=== PATIENT | female | born 1935 | race Caucasian/White ===

== ENCOUNTER → 2016-06-03 | Outpatient (CLI) | payer MEDICARE, OTHER, MEDICAID ==
[~2016-06-03] MED LIST: ACET325T38 PO; ALEN70TA2 PO; ASCO500T6 PO; ATN50T PO; ATOR10TA PO; BISA10SU20 RC; BISA5TAB8 PO; BISM262O PO; CALC-671 PO; CALC-770 PO; DEXT1DRO8 OU; DIPH25CA79 PO; DNPZ10T PO; DOCU-34 PO; DPAS20025 PO; ESCI5TAB PO; FAMO20TA13 PO; FLUT16SP NSEACH; GBPN100C PO; HCT25T PO; LIDO76.5 TP; MAG360OR57 PO; MAGN400T26 PO; MAGN800O PO; OXYB10TA PO; PHEN100C4 PO; TRAZ150T72 PO; TRM50T PO; TROL177. TP; VIT1TABL26 PO; ZLP5T PO
[2016-06-03 13:27] LABS: MEAN CORPUSCULAR HEMOGLOBIN 30.5 PG (26.0-34.0); MEAN CORPUSCULAR HGB CONC 34.2 g/dL (31.0-37.0); MEAN CORPUSCULAR VOLUME 89 FL (80-100); MEAN PLATELET VOLUME 11.2 FL (6.0-9.5); PLATELET COUNT 292 10^3uL (150-450); WHITE BLOOD COUNT 13.74 10^3uL (4.0-11.0)
[2016-06-03 13:33] LABS: ALBUMIN 4.6 g/dL (3.4-5.0); ANION GAP 17.1 MEQ/L (3-15); CALCULATED IONIZED CALCIUM 4.8 mg/dL (3.8-4.6); TOTAL PROTEIN 7.2 g/dL (6.4-8.5)
[2016-06-03 13:37] LABS: BAND NEUTROPHILS % 2 % (0-6); EOSINOPHILS % 0 % (0-4); LYMPHOCYTES # 1.1 #; MONOCYTES # 0.3 #; MONOCYTES % 2 % (3-11); RBC MORPH NORMAL (NORMAL); SEGMENTED NEUTROPHILS % 88 % (51-67); TOTAL CELLS COUNTED 100
== END ==
LOC: LAB 12:39
PROVIDERS: ATTEND Surgery
DX: Z01.818 Encounter for other preprocedural examination (principal); K43.0 Incisional hernia with obstruction, without gangrene; I63.9 Cerebral infarction, unspecified
CPT/HCPCS: 36415; 80053; 85007; 85027; 85610; 93005

== ENCOUNTER 2016-06-04 10:07 | Inpatient (IN) | payer MEDICARE, OTHER, MEDICAID ==
[2016-06-04] VITALS (13 sets, daily range): BP systolic 110–143; BP diastolic 56–81
[~2016-06-04] VITALS: Ht 154.9 cm; Wt 62.1 kg
[~2016-06-04 10:07] MED LIST changes: +ACETAMINOPHEN 500 MG TAB (TYLENOL) PO SCH; -SODIUM CHLORIDE FLUSH 10 ML ONE; +SODIUM CHLORIDE FLUSH 3 ML SYR IV SCH; +ceFAZolin 2,000 MG in SODIUM CHLORIDE VIAL (PF) 20 ML IV SCH; +oxyCODONE IMMEDIATE RELEASE 5 MG (OXYIR) TAB PO SCH
--- NOTE | 2016-06-04 10:15 | NUR ---
ORDERS FOR OXYCODONE AND TYLENOL PREOP CANCELLED PER IRAM DOWNING/DR. JERSEY BOYER. PT WILL BE ADMITTED TO FLOOR AND GETTING IV PAIN MEDICATION INSTEAD.
--- NOTE | 2016-06-04 10:25 | NUR ---
Pt admitted to room 313 via w/c from [facility] accompanied by [facility] staff. Transferred 2 hand held assist from w/c to weight chair then to bed. Shuffled gait. Desiree Delong RN from [facility] in room to admit patient.
[2016-06-04] MEDS ORDERED: ONDANSETRON 2 MG/ML (Z0FRAN) 2 ML VIAL IV ONE (10:45)
[2016-06-04] MEDS ORDERED: NALBUPHINE 10 MG/ML (NUBAIN) 1 ML AMP IV ONE (10:45)
--- NOTE | 2016-06-04 11:02 | NUR ---
On admit patient is alert and oriented to place and name but not to time. iv started on first attempt. family is at bedside.
[2016-06-04] MEDS: LACTATED RINGERS 1,000 ML IV SCH ×3 (11:19→19:02)
[2016-06-04] MEDS ORDERED: MAGN800O PO (11:57)
[2016-06-04] MEDS ORDERED: ALEN70TA2 PO (11:57)
[2016-06-04] MEDS ORDERED: LIDO76.5 TP (11:57)
[2016-06-04] MEDS ORDERED: OXYB10TA PO (11:57)
[2016-06-04] MEDS ORDERED: ATOR10TA PO (11:57)
[2016-06-04] MEDS ORDERED: TRAZ150T72 PO (11:57)
[2016-06-04] MEDS ORDERED: DIPH25CA79 PO (11:57)
[2016-06-04] MEDS ORDERED: ZLP5T PO (11:57)
[2016-06-04] MEDS ORDERED: HCT25T PO (11:57)
[2016-06-04] MEDS ORDERED: DOCU-34 PO (11:57)
[2016-06-04] MEDS ORDERED: VIT1TABL26 PO (11:57)
[2016-06-04] MEDS ORDERED: FAMO20TA13 PO (11:57)
[2016-06-04] MEDS ORDERED: CALC-770 PO (11:57)
[2016-06-04] MEDS ORDERED: FLUT16SP NSEACH (11:57)
[2016-06-04] MEDS ORDERED: DNPZ10T PO (11:57)
[2016-06-04] MEDS ORDERED: GBPN100C PO (11:57)
[2016-06-04] MEDS ORDERED: PHEN100C4 PO (11:57)
[2016-06-04] MEDS ORDERED: TRM50T PO (11:57)
[2016-06-04] MEDS ORDERED: ESCI5TAB PO (11:57)
[2016-06-04] MEDS ORDERED: BISA5TAB8 PO (11:57)
[2016-06-04] MEDS ORDERED: ASCO500T6 PO (11:57)
[2016-06-04] MEDS ORDERED: DPAS20025 PO ×2 (11:57→12:40)
[2016-06-04] MEDS ORDERED: ACET325T38 PO (11:57)
[2016-06-04] MEDS ORDERED: MAGN400T26 PO (11:57)
[2016-06-04] MEDS ORDERED: ATN50T PO (11:57)
[2016-06-04] MEDS ORDERED: DEXT1DRO8 OU ×2 (11:57→12:40)
[2016-06-04] MEDS ORDERED: BISM262O PO (11:57)
[2016-06-04] MEDS ORDERED: TROL177. TP (12:40)
[2016-06-04] MEDS ORDERED: MAG360OR57 PO (13:46)
[2016-06-04] MEDS ORDERED: CALC-671 PO (13:46)
[2016-06-04] MEDS ORDERED: BISA10SU20 RC (13:46)
--- NOTE | 2016-06-04 15:29 | NUR ---
Pt to OR at this time via bed, accompanied by Carolyne and Desiree WALDEN's and family
[2016-06-04] MEDS ORDERED: MIDAZOLAM 2 MG/2 ML (VERSED) VIAL ONE (15:49)
[2016-06-04] MEDS ORDERED: LIDOCAINE 4% TOPICAL 4.5 ML SYR ONE (15:50)
[2016-06-04] MEDS ORDERED: ALFENTANIL 500 MCG/ML (ALFENTA) 5 ML AMP IV ONE (15:50)
[2016-06-04] MEDS ORDERED: ceFAZolin 1000 MG (ANCEF) VIAL ONE (16:00)
[2016-06-04] MEDS ORDERED: OXYMETAZOLINE 0.05% NASAL SPRAY (AFRIN) 15 ML BTL ONE (16:12)
[2016-06-04] MEDS ORDERED: ROCURONIUM 50 MG/5 ML (ZEMURON) VIAL IV ONE (16:43)
[2016-06-04] MEDS ORDERED: PROPOFOL 20 ML IV ONE (16:44)
--- NOTE | 2016-06-04 16:47 | NUR ---
MED REC COMPLETE--current med list obtained from [facility] ([place]) med listing. Completed by Matt Burrell, Pharm. D. Candidate 2017.
[2016-06-04] MEDS ORDERED: BUPIVACAINE 0.25% (MARCAINE) 30 ML VIAL ONE (16:51)
[2016-06-04] MEDS ORDERED: ROPIVACAINE 1% 10 MG/ML (NAROPIN) 20 ML AMPUL ONE (16:52)
[2016-06-04 16:55] LABS: BILIRUBIN,URINE Negative (Negative); CLARITY,URINE Clear; COLOR,URINE Yellow; GLUCOSE, URINE (UA) Negative (Negative); LEUKOCYTE ESTERASE, URINE Negative (Negative); UROBILINOGEN,URINE 0.2 mg/dL (0.2-1.0)
[2016-06-04] MEDS ORDERED: ROPIVACAINE 0.2% 100 ML ONE (17:01)
[2016-06-04] MEDS ORDERED: BUPIVACAINE/EPINEPHRINE 0.25%-1:200,000 (MARCAINE) 30 ML VIAL INJ ONE (17:01)
[2016-06-04] MEDS ORDERED: ROPIVACAINE 0.2% ONE (17:11)
[2016-06-04] MEDS ORDERED: METOCLOPRAMIDE 10 MG/2 ML (REGLAN) VIAL ONE (17:16)
[2016-06-04] MEDS ORDERED: ONDANSETRON 2 MG/ML (Z0FRAN) 2 ML VIAL ONE (17:16)
[2016-06-04] MEDS ORDERED: SUCCINYLCHOLINE 20 MG/ML 10 ML VIAL ONE (17:17)
[2016-06-04] MEDS ORDERED: GLYCOPYRROLATE 0.2 MG/ML (ROBINUL) 1 ML VIAL ONE (17:46)
[2016-06-04] MEDS ORDERED: NEOSTIGMINE 1 MG/ML SYRINGE ONE (17:46)
[2016-06-04] MEDS ORDERED: KETOROLAC 60 MG/2 ML (TORADOL) VIAL IM ONE (18:10)
[2016-06-04] MEDS ORDERED: NALOXONE 0.4 MG/ML (NARCAN) 1 ML VIAL IV PRN (18:30)
[2016-06-04] MEDS ORDERED: ONDANSETRON 2 MG/ML (Z0FRAN) 2 ML VIAL IV PRN (18:30)
[2016-06-04] MEDS ORDERED: diphenhydrAMINE 50 MG/ML INJ (BENADRYL) IV PRN (18:30)
--- NOTE | 2016-06-04 18:30 | Post Operative Note (E) ---
Post Op Note 06/04/16 18:28 Pre-Operative Diagnosis: Incarcerated incisional hernia Post-Operative Diagnosis: Same, containing small bowel and omentum Procedure: Open repair incarcerated incisional hernia Surgeon: Ras Sand Caster Apprentice: Tabatha Findings: Viable loop of small bowel, slightly dusky omentum, 4 cm fascial defect Anesthesia: GOT EBL: 25 ml Drains: None Specimem: Omentum, hernia sac Complications None Condition: Good. Op note dict #[id number] MARCELO PUTNAM MD Jun 04, 2016 18:30
--- NOTE | 2016-06-04 18:50 | NUR ---
Pt returns to room 313 via bed from [facility], accompanied by Desiree Delong RN and family. NG in place to Right Nare at 60cm. Attached to LIWS as ordered by Dr. Mcginnis- no drainage noted at this time. IVF infusing as ordered : LR at 80ml/hr via pump, with Morphine BILLING MACHINE OPERATOR as well. BILLING MACHINE OPERATOR button within pt reach and educated of use- will cont to remind patient on this. Rhodes to DD- clear, light lennox urine in collection bag. ETCO2 monitor in place per protocol- WNL. Midline incision covered with Gauze and tegaderms. no drainage noted as of yet. Denies pain, n/v. Will cont to monitor patient. Call light within reach. Addendum: 06/04/16 at 2020 by Sandra Blum RN On return to room at 1850- is on 2L O2 nc while resting.
[2016-06-04] MEDS: morphine PCA 30 MG/30 ML VIAL IV PRN (19:02)
--- NOTE | 2016-06-04 23:00 | NUR ---
Care assumed from Mary Carmen WALDEN. Patient turned and repositioned. Denies severe pain. Re-educated on use of GARNETT FEEDER and using button. Oxygen on at 2 liters per nasal cannula. Midline dressing dry and intact. Abdomen sl distended and soft. Patient has been using call light for needs. Oral care and moisture to lips. Rhodes catheter drains lennox. Scd's intact and functioning. Patient oriented to self and place at this time. Bed alarm on for patient safety.
[2016-06-05] VITALS (9 sets, daily range): BP systolic 119–151; BP diastolic 54–64
--- NOTE | 2016-06-05 02:00 | NUR ---
Patient turned and repositioned, Tolerates well. Continues to use RN OPERATING ROOM button when reminded to do so, when in pain. Abdominal dressing remains dry and intact. ETC02 remains on. Patients vitals stable. C and DB well when reminded. Call light within reach.
[2016-06-05] MEDS: LACTATED RINGERS 1,000 ML IV SCH (06:26)
--- NOTE | 2016-06-05 06:30 | NUR ---
Rested at long intervals tonight. Moves well with assistance. Abdominal dressing remains dry and intact. Abdomen remains soft and round. Patient denies nausea. No output in NG. Small amount of bile colored drainage in tubing. Remains NPO. Remains alert and oriented to person and place. Uses LICENSED OCCUPATIONAL THERAPY ASSISTANT when reminded. Hold's LICENSED OCCUPATIONAL THERAPY ASSISTANT button in her hand. Does know how to use her call light. Rhodes drains lennox urine. Oral care done. Bed alarm on for safety.
[2016-06-05 06:42] LABS: ANION GAP 14.6 MEQ/L (3-15)
--- NOTE | 2016-06-05 08:40 | NUR ---
NG tube clamped at this time per order. CL diet ordered for patient. Ice water given., pt c/o sore throat. Throat lozenge will be given.
[2016-06-05] MEDS: CEPASTAT LOZENGE MM PRN ×3 (08:44→16:42)
--- NOTE | 2016-06-05 08:53 | NUR ---
IVF rate down to 40mls/hr per Dr order at this time. Cepacol lozenge given and pt taking sips of clear liquids.
--- NOTE | 2016-06-05 08:55 | Progress Note (E) ---
Progress Note Surgery note Subjective: Minimal pain. No nausea. Is hungry. Objective: Vitals stable, low grade temp. Adequate urine output. Minimal NG output. Lungs clear. Abdomen soft, minimal incisional tenderness. Normal BS. BMP noted (sodium 132). Impression: Doing well post-op Recommendations: Clamp NG, clear liquid trial. Restart Beta oneyda. Review other home meds with pharmacist as to when to restart. Decrease IV fluids. MARCELO PUTNAM MD Jun 05, 2016 08:55
[2016-06-05] MEDS ORDERED: ENOXAPARIN 40 MG/0.4 ML (LOVENOX) SYR SC SCH (09:00)
[2016-06-05] MEDS ORDERED: NS FLUSH 3 ML PRN IV (09:25)
[2016-06-05] MEDS ORDERED: NS FLUSH 10 ML PRN IV (09:25)
--- NOTE | 2016-06-05 09:42 | OPERATIVE REPORT ---
DATE OF OPERATION: 06/04/2016 PRE-OPERATIVE DIAGNOSIS: Incarcerated incisional hernia POST-OPERATIVE DIAGNOSIS: Incarcerated incisional hernia with loop of small bowel. OPERATIVE PROCEDURE: Open repair of incarcerated incisional hernia SURGEON: Mg Mcginnis MD ASSEMBLY LINE ROBOT OPERATOR: Clarisa Mays RN, CSFA ANESTHESIA: General orotracheal POSITION: Spine PREP: Chlorhexidine ESTIMATED BLOOD LOSS: 25 mL FINDINGS: A 4 cm incisional hernia defect containing viable loop of small bowel and omentum. INDICATIONS: This patient presented to the office yesterday with a 1-week history of incarcerated hernia and mild tenderness. The patient was scheduled for urgent repair today. This morning she had some nausea and vomiting, therefore an NG tube was placed preop and drained 500 mL. Options, nature and risks were discussed with the patient and her family who understood and wished to proceed. OPERATIVE NOTE: Following satisfactory induction of anesthesia, a Rhodes catheter was inserted. The patient was prepped and draped in sterile fashion. The previous lower vertical midline incision was reentered. The hernia sac was carefully dissected circumferentially down to the level of the fascia. The fascial defect was enlarged slightly to allow the hernia sac to be entered. The hernia sac was noted to contain a tongue of omentum, which was somewhat dusky and a viable loop of small bowel. There was an obstructing point at either end of the loop. The bowel was reduced into the peritoneal cavity. The incarcerated tongue of omentum was clamped in multiple bites, divided and ligated with 3-0 Vicryl. This was submitted as a specimen to pathology. Adhesions to the surrounding peritoneum were sharply taken down. The bowel was inspected and appeared normal. Palpation revealed no evidence of stricture or obstruction within the bowel. Proximal small bowel was not dilated. Palpation of the abdominal wall from within the peritoneal cavity revealed no additional hernia defects. The fascial edges were sharply debrided. Given the patient's age, performance status, urgent nature of the surgery, and small nature of the defect, (which could be closed primarily without tension), I elected not to use polypropylene mesh to reinforce the repair. This would allow for shorter operation with satisfactory results. Attempt was made to pass ON-Q head golf professional catheters percutaneously into the preperitoneal space under direct vision on either side, however, the catheter was too long for the patient's body habitus and this was therefore abandoned. Closure of the fascial defect was then accomplished vertically with continuous #0 PDS suture. An overlay Vicryl mesh patch was placed to further reinforce closure. The peripheral edges of the mesh were secured to the fascia with a simple interrupted 3-0 Vicryl suture. Additional local anesthetic was instilled in the wound using 0.25% Marcaine with epinephrine for postop pain control. Closure was accomplished as follows. The subcutaneous tissues were reapproximated with simple interrupted 3-0 Vicryl suture. The skin was closed with washington. Occlusive dressings were applied. The patient tolerated the procedure well and transferred to recovery in stable condition. Final instrument, needle and sponge counts correct.
[2016-06-05] MEDS: CITALOPRAM 20 MG (CELEXA) TABLET PO SCH (09:47)
[2016-06-05] MEDS: ATENOLOL 50 MG (TENORMIN) TAB PO SCH (09:47)
--- NOTE | 2016-06-05 10:23 | NUR ---
[facility] contacted SW asking for an update on Pt. Update provided to the facility.
--- NOTE | 2016-06-05 13:27 | NUR ---
Pt took sips and bites of lunch tray. C/o sore throat, another cepacol lozenge given at 1245. Pt resting in bed.
--- NOTE | 2016-06-05 14:03 | NUR ---
NG tube pulled per order at this time. No output noted. Pt resting in bed, denies any needs.
--- NOTE | 2016-06-05 14:14 | NUR ---
1400-O2 sat 94% on 2L/NC. Pt requests O2 be taken off. Instructed pt that we could try and wean her off the O2. O2 turned down to 1L/NC. 1415-O2 sat 92% on room air, orders to keep sat 92 or above. O2 will remain at 1L/NC at this time. Pt turned to left side, tolerated well.
--- NOTE | 2016-06-05 15:11 | NUR ---
Pt's daughter here at this time. Pt resting in bed, denies any needs.
--- NOTE | 2016-06-05 18:29 | NUR ---
Pt refuses to get up for supper. States "my belly hurts". When asked, pt states she is nauseated. Zofran 4mg IV given. Pt repositioned in bed.
[2016-06-05] MEDS: traZODone 150 MG (DESYREL) TABLET PO SCH (20:11)
[2016-06-05] MEDS: DIPYRIDAMOLE PO SCH (20:11)
[2016-06-05] MEDS: ASPIRIN PO SCH (20:11)
[2016-06-05] MEDS: morphine PCA 30 MG/30 ML VIAL IV PRN (21:16)
[2016-06-06] VITALS (8 sets, daily range): BP systolic 120–157; BP diastolic 68–83
--- NOTE | 2016-06-06 04:21 | NUR ---
Pt has been restless through out this shift, continues to have Morphine METAL BONDING PRESS OPERATOR, changed Morphine syringe at 2114, Cindy WALDEN witnessed. Pt has hard time leaving finger probe and O2 on, ECO2 keeps alarming because she is continually removing these items. Rates pain 4/10 to abdomen, dressing to abdomen is clean, dry, and intact. IV is infusing without difficulty, no redness, swelling, or s/s of infection noted at this time. This RN and [facility] STRIKE OPERATIONS OFFICER have oriented and educated pt several times. Bed alarm is on, call light is in reach, will continue to monitor frequently.
[2016-06-06] MEDS: LACTATED RINGERS 1,000 ML IV SCH ×3 (05:53→23:36)
[2016-06-06 06:30] LABS: ANION GAP 15.8 MEQ/L (3-15)
--- NOTE | 2016-06-06 07:39 | NUR ---
Pt resting quietly in bed upon shift assessment. Easily wakes to verbal stimuli. ADJUNCT INSTRUCTOR with carrier fluids intact to RFA IV. Resp even and non labored. Midline dressing clean, dry, intact.
[2016-06-06] MEDS: NS FLUSH 3 ML DAILY IV SCH (08:39)
[2016-06-06] MEDS: ATENOLOL 50 MG (TENORMIN) TAB PO SCH (08:41)
[2016-06-06] MEDS: CITALOPRAM 20 MG (CELEXA) TABLET PO SCH (08:41)
[2016-06-06] MEDS: ENOXAPARIN 30 MG/0.3 ML (LOVENOX) SYR SC SCH (08:41)
[2016-06-06] MEDS: ASPIRIN PO SCH ×2 (08:41→20:13)
[2016-06-06] MEDS: DIPYRIDAMOLE PO SCH ×2 (08:41→20:13)
[2016-06-06] MEDS ORDERED: morphine INJ 2 MG/ML 1 ML SYRINGE IV PRN (11:15)
--- NOTE | 2016-06-06 11:23 | NUR ---
Dr Krueger and med student here to see patient.
--- NOTE | 2016-06-06 11:35 | Progress Note-A/P (E) ---
Progress Note Subjective Subjective Sitting up in chair. No complaints. Pain seems to be well-controlled. She did take some food, but isn't a big breakfast eater. Objective VS Vital Signs Date Time Temp Pulse Resp B/P Pulse Ox O2 Delivery O2 Flow Rate FiO2 06/06/16 11:21 97.9 65 18 141/83 98 Nasal cannula I&O I & O Past 24 hrs 06/06/16 07:00 Intake Total 2458 ml Output Total 1100 ml Balance 1358 ml Intake Oral 550 ml IV Total 1908 ml Output Urine Total 1100 ml Current Medications Current Medications Lactated Ringer's (Lactated Ringers) 1,000 ml @ 40 mls/hr Q24H IV Last administered on 06/06/16 05:53; Admin Dose 40 MLS/HR; Start 06/04/16 at 18:30 Morphine Sulfate (morphine (ART INSTALLER) 1 MG/ML) 1 vial PRN PRN IV Last administered on 06/05/16 21:16; Admin Dose 1 VIAL; Start 06/04/16 at 18:30 Diphenhydramine HCl (Benadryl Inj) 25 mg Q4H PRN IV; Start 06/04/16 at 18:30 Ondansetron HCl (Zofran Inj (Sdv)) 4 mg Q6H PRN IV Last administered on 18:28; Admin Dose 4 MG; Start 06/04/16 at 18:30 Naloxone HCl (Narcan) 0.1 mg Q2M PRN IV; Start 06/04/16 at 18:30 Throat Lozenges (Cepastat) 1 ea Q1H PRN MM Last administered on 06/05/16 16:42 ; Admin Dose 1 EA; Start 06/04/16 at 18:45 Atenolol (Tenormin) 50 mg DAILY PO Last administered on 06/06/16 08:41; Admin Dose 50 MG; Start 06/05/16 at 09:00 Citalopram Hydrobromide (CeleXA) 30 mg DAILY PO Last administered on 06/06/16 08 :41; Admin Dose 30 MG; Start 06/05/16 at 09:15 Sodium Chloride (Normal Saline Flush) 3 ml DAILY IV; Start 06/06/16 at 09:00 Sodium Chloride (Normal Saline Flush) 3 ml UD PRN IV; Start 06/05/16 at 09:25 Sodium Chloride (Normal Saline Flush) 10 ml UD PRN IV; Start 06/05/16 at 09:25 Trazodone HCl (Desyrel) 150 mg HS PO Last administered on 06/05/16 20:11; Admin Dose 150 MG; Start 06/05/16 at 21:00 Dipyridamole/ Aspirin (Aggrenox 25 Mg-200mg) 1 ea BID PO Last administered on 08:41; Admin Dose 1 EA; Start 06/05/16 at 21:00 Enoxaparin Sodium (Lovenox) 30 mg DAILY SC Last administered on 06/06/16 08:41; Admin Dose 30 MG; Start 06/06/16 at 09:00 General Awake, alert, no distress. Mostly oriented, but some slight confusion. CV S1S2 RRR Lungs Clear bilaterally Abdomen Incision clean, dry, intact Extremities No edema Integumentary Warm, dry Neuro No gross deficits Labs, Most Recent- Laboratory Results Past 24 Hrs 06/06/16 05:55: Anion Gap 15.8, BUN/Creatinine Ratio 38, Blood Urea Nitrogen 40, Calcium Level 9.5, Carbon Dioxide Level 26, Chloride Level 100, Creatinine 1.04, Estimat Glomerular Filtration Rate 62.0, Estimated GFR (Non- 51.3, Glucose Level 112, Potassium Level 3.7, Sodium Level 138 24 Hr Result Diagram CBC BMP Last 24 Hrs 06/06/16 05:55 Assessment POD#2 incisional hernia repair Plan DC ART INSTALLER, and move to oral pain meds. Will keep her here today. MINA WRIGHT MD Jun 06, 2016 11:35
--- NOTE | 2016-06-06 13:56 | NUR ---
Dr Krueger notified of pt's not having urine output since catheter removal this morning. Orders received to straight cath pt if no urine output in 4 hours.
--- NOTE | 2016-06-06 15:36 | NUR ---
Pt satting 99% on 3L oxygen. Turned down to 2L. Will reassess after a bit.
--- NOTE | 2016-06-06 16:59 | NUR ---
Pt sitting on commode at this time, on 2L NC- SPO2 97%, titrated O2 down to 1L NC, RN notified.
--- NOTE | 2016-06-06 18:27 | NUR ---
Pt up to chair throughout the day. Voids approximately 200 ml since isaac has been discontinued. SL intact. Titrated down to 1L oxygen by RT Willow. Pt forgetful at times.
[2016-06-06] MEDS: traZODone 150 MG (DESYREL) TABLET PO SCH (20:13)
[2016-06-07] VITALS: BP 140/67
[2016-06-07 04:17] VITALS: BP 132/72
--- NOTE | 2016-06-07 05:12 | NUR ---
Pt has been restless through out this shift, has had increased confusion. Gave Ultram 50mg 1 tab PO for discomfort. Pt was able to get some sleep for a few hours. Pt awakens at 0430 and complains of pain, gave 1 tab PO of Ultram 50mg for discomfort. Pt is resting in bed asleep at this time. Bed alarm on, call light in reach, will continue to monitor.
--- NOTE | 2016-06-07 07:30 | NUR ---
Pt juan miguel whaley for help- this nurse transfers patient to BSC- voids 300ml clear, yellow urine. Then transferred to chair for breakfast.
[2016-06-07 08:17] VITALS: BP 145/83
[2016-06-07] MEDS: DIPYRIDAMOLE PO SCH (08:48)
[2016-06-07] MEDS: ATENOLOL 50 MG (TENORMIN) TAB PO SCH (08:48)
[2016-06-07] MEDS: ASPIRIN PO SCH (08:48)
[2016-06-07] MEDS: CITALOPRAM 20 MG (CELEXA) TABLET PO SCH (08:48)
[2016-06-07] MEDS: ENOXAPARIN 30 MG/0.3 ML (LOVENOX) SYR SC SCH (08:49)
[2016-06-07] MEDS: NS FLUSH 3 ML DAILY IV SCH (08:50)
--- NOTE | 2016-06-07 09:23 | NUR ---
Pt titrated from 1L nc sats at 97% to RA at this time. Trish RT notified- Pt sitting upright in chair, watching tv. Denies abd pain. Going to shower, then this nurse will change abd incision dressing as ordered. Tabs alarm in place, call light within reach.
--- NOTE | 2016-06-07 10:27 | NUR ---
Pt back from shower- remains on RA sats 95%. Dressing re-applied to midline incision- 11 washington intact- no drainage noted. 2 trochar incision noted bilaterally to Midline open to air- scant bright red drop of drainage to Left upper trochar incision. WIll cont to monitor. Pt resting in bed, denies need for pain meds at this time.
[2016-06-07] MEDS ORDERED: DOCUSATE SODIUM 100 MG (COLACE) CAP PO SCH (10:55)
--- NOTE | 2016-06-07 10:58 | Progress Note-A/P (E) ---
Progress Note Subjective Subjective Currently on commode, passing "very little" flatus, no BM yet. Took prune juice for lunch. No significant pain, no complaints. Confused at times according to staff. Objective VS Vital Signs Date Time Temp Pulse Resp B/P Pulse Ox O2 Delivery O2 Flow Rate FiO2 06/07/16 08:17 97.4 67 16 145/83 97 Nasal cannula I&O I & O Past 24 hrs 06/07/16 06:59 Intake Total 319 ml Output Total 1250 ml Balance -931 ml Intake Oral 319 ml Output Urine Total 1250 ml Current Medications Current Medications Lactated Ringer's (Lactated Ringers) 1,000 ml @ 40 mls/hr Q24H IV Last administered on 06/06/16 05:53; Admin Dose 40 MLS/HR; Start 06/04/16 at 18:30 Diphenhydramine HCl (Benadryl Inj) 25 mg Q4H PRN IV; Start 06/04/16 at 18:30 Ondansetron HCl (Zofran Inj (Sdv)) 4 mg Q6H PRN IV Last administered on 18:28; Admin Dose 4 MG; Start 06/04/16 at 18:30 Naloxone HCl (Narcan) 0.1 mg Q2M PRN IV; Start 06/04/16 at 18:30 Throat Lozenges (Cepastat) 1 ea Q1H PRN MM Last administered on 06/05/16 16:42 ; Admin Dose 1 EA; Start 06/04/16 at 18:45 Atenolol (Tenormin) 50 mg DAILY PO Last administered on 06/07/16 08:48; Admin Dose 50 MG; Start 06/05/16 at 09:00 Citalopram Hydrobromide (CeleXA) 30 mg DAILY PO Last administered on 06/07/16 08 :48; Admin Dose 30 MG; Start 06/05/16 at 09:15 Sodium Chloride (Normal Saline Flush) 3 ml DAILY IV Last administered on 08:50; Admin Dose 3 ML; Start 06/06/16 at 09:00 Sodium Chloride (Normal Saline Flush) 3 ml UD PRN IV; Start 06/05/16 at 09:25 Sodium Chloride (Normal Saline Flush) 10 ml UD PRN IV; Start 06/05/16 at 09:25 Trazodone HCl (Desyrel) 150 mg HS PO Last administered on 06/06/16 20:13; Admin Dose 150 MG; Start 06/05/16 at 21:00 Dipyridamole/ Aspirin (Aggrenox 25 Mg-200mg) 1 ea BID PO Last administered on 08:48; Admin Dose 1 EA; Start 06/05/16 at 21:00 Enoxaparin Sodium (Lovenox) 30 mg DAILY SC Last administered on 06/07/16 08:49; Admin Dose 30 MG; Start 06/06/16 at 09:00 Tramadol HCl (Ultram) 50 mg Q6H PRN PO Last administered on 06/07/16 04:30; Admin Dose 50 MG; Start 06/06/16 at 11:15 Morphine Sulfate (morphine INJ) 1-2MG IV Q3HR PRN BREAKTHRO... Q3H PRN IV; Start 06/06/16 at 11:15 General Awake, alert, no distress. CV S1S2 RRR Lungs Clear bilaterally Abdomen Incision clean, dry, intact, according to nurse who showered patient this morning. Extremities No edema Integumentary Warm, dry Neuro No gross deficits Assessment POD#3 incisional hernia repair Plan Doing well. Will likely transfer to half-way today if passing flatus or stool. MINA WRIGHT MD Jun 07, 2016 10:58
--- NOTE | 2016-06-07 11:01 | NUR ---
At 1050 Dr. Krueger at bedside This nurse received VORB for Docusate 100mg BID scheduled- given now.
[2016-06-07 11:24] VITALS: BP 163/78
--- NOTE | 2016-06-07 12:28 | Discharge Instructions (E) ---
Discharge Instructions Instructions Call [facility] for surgeon on-call if patient experiences increasing pain despite analgesics, persistent nausea and vomiting, redness or drainage at incision, or other concern. May shower. Change abdominal dressing daily and as needed. (4x4 and tape) Activity Instructions No restrictions. Doctor's Appointment F/U with Dr. Mcginnis in clinic in 10-14 days for staple removal. Call for appointment. Discharge Diet: Mechanical soft MINA WRIGHT MD Jun 07, 2016 12:27
--- NOTE | 2016-06-07 13:59 | NUR ---
Report called to Rula at [facility]. DC packet and belongings sent with patient. Skin warm, dry, intact. Resprs nonlabored, even on RA. Denies pain. SL removed with catheter tip intact. PV transportation here. Pt dismissed at this time via w/c accompanied by [facility] transportation.
--- NOTE | 2016-06-08 11:42 | DISCHARGE SUMMARY ---
ADMISSION DATE: 06/04/2016 DISCHARGE DATE: 06/07/2016 DISCHARGE DIAGNOSES: 1. Incarcerated incisional hernia. 2. Hypertension. 3. Multiinfarct dementia. 4. Seizure disorder. PROCEDURES: Open repair of incarcerated incisional hernia on 06/04/2016. PRESENT ILLNESS AND POSITIVE PHYSICAL FINDINGS: This patient presented to the office with a 5-day history of a tender bulge in the lower midline incision, which could not be reduced. She had occasional nausea and vomiting, though not at the time of presentation. Pertinent exam findings revealed a tender 5 x 10 cm bulge in the lower midline incision. The remainder of the abdomen was soft and nontender with normal bowel sounds. SIGNIFICANT LABORATORY DATA: Glucose 124, BUN 27 with remainder of CMP normal. Prothrombin INR was normal. CBC was significant for white count of 13,700 with 88% polys. No bands. Hemoglobin was 11.9 and hematocrit 34.8. Platelet count was normal. EKG showed sinus rhythm with 1st degree AV block, but otherwise normal. HOSPITAL COURSE AND TREATMENT: The patient underwent open repair of the incisional hernia on 06/04/2016. It contained a trapped loop of small bowel, which was viable and tongue of omentum that was slightly dusky. The omentum was removed. Primary repair was accomplished with suture. The patient did well post-operatively, resuming oral intake the following day and gradual resumption of GI tract function. She was discharged on the 3rd postoperative day back to the longterm. DISCHARGE INSTRUCTIONS: The patient is to avoid lifting or straining over 20 pounds for 4 weeks. She may shower, but avoid emersion in water until the washington are removed. DISCHARGE MEDICATIONS: The patient is prescribed tramadol 50 mg every 6 hours as needed for pain. OTHER MEDICATIONS PER PREADMISSION: 1. Tylenol 325 to 650 mg every 4 hours p.r.n. for mild pain or fever. 2. Fosamax 70 mg weekly on . 3. Ascorbic acid 1000 mg daily. 4. Aggrenox 25/200 mg, 1 tablet twice daily. 5. Atenolol 50 mg daily. 6. Atorvastatin 10 mg daily at bedtime. 7. Bisacodyl 10 mg suppository as needed daily p.r.n. for rectum. 8. Kaopectate 30 mL every 6 hours as needed for diarrhea. 9. Calcium carbonate plus vitamin D 3 (calcium 600 plus vitamin D 400 tablet) 1 tablet twice daily. 10. Artificial tears 2 drops both eyes as needed plus 1 drop 3 times daily each eye. 11. Benadryl 25 mg as needed for itching. 12. Colace 200 mg twice daily by mouth as needed for constipation. 13. Donepezil 10 mg at bedtime. 14. Lexapro 15 mg daily. 15. Pepcid 20 mg daily. 16. Flonase 50 mcg per activation 1 spray each nostril daily. 17. Gabapentin 100 mg 3 times daily. 18. Hydrochlorothiazide 25 mg daily. 19. Aluminum magnesium hydroxide simethicone liquid 10 to 20 mL 3 times daily as needed for upset stomach. 20. Milk of magnesia 5 to 10 mL as needed for constipation. 21. Magnesium oxide 400 mg tablet daily. 22. Oxybutynin chloride extended release 10 mg daily at bedtime. 23. Dilantin 200 mg twice daily. 24. Trazodone 150 mg daily at bedtime. 25. Aspercreme lotion twice daily topical application as needed for pain. 26. Ocuvite tablet once daily. 27. Zolpidem 5 mg daily at bedtime. DISCHARGE INSTRUCTIONS: The patient is to return to the office in 10 to 14 days for staple removal. Warning signs included increased pain, nausea, fever, redness or drainage. PROGNOSIS AT DISCHARGE: Good. CONDITION ON DISCHARGE: Stable.
== END 2016-06-07 14:00 | DRG 355 ==
LOC: EDSTATUS 10:07 → UNDOADMOB 10:19 → MED/SURG 10:19 → OBSVTOIN 18:38 → MED/SURG 18:38
PROVIDERS: ADMIT Surgery; ATTEND Surgery
PROC: 0DBS0ZX (ICD-10-PCS; principal; 2016-06-04)
PROC: 0WQF0ZZ Repair Abdominal Wall, Open Approach (ICD-10-PCS; principal; 2016-06-04)
DX: K43.0 Incisional hernia with obstruction, without gangrene (principal); I10 Essential (primary) hypertension; G40.909 Epilepsy, unspecified, not intractable, without status epilepticus; F01.50 Vascular dementia, unspecified severity, without behavioral disturbance, psychotic disturbance, mood disturbance, and anxiety; I44.0 Atrioventricular block, first degree; R73.02 Impaired glucose tolerance (oral); K21.9 Gastro-esophageal reflux disease without esophagitis; E78.5 Hyperlipidemia, unspecified; I69.398 Other sequelae of cerebral infarction
CPT/HCPCS: 36415; 80048; 81003; 88302; 88305; 94770

== ENCOUNTER → 2016-06-04 | Outpatient (CLI) | payer MEDICARE, OTHER, MEDICAID ==
[~2016-06-04] MED LIST changes: -ACET325T38 PO; -ALEN70TA2 PO; -ASCO500T6 PO; -ATN50T PO; -ATOR10TA PO; -BISA10SU20 RC; -BISA5TAB8 PO; -BISM262O PO; -CALC-671 PO; -CALC-770 PO; -DEXT1DRO8 OU; -DIPH25CA79 PO; -DNPZ10T PO; -DOCU-34 PO; -DPAS20025 PO; -ESCI5TAB PO; -FAMO20TA13 PO; -FLUT16SP NSEACH; -GBPN100C PO; -HCT25T PO; -LIDO76.5 TP; -MAG360OR57 PO; -MAGN400T26 PO; -MAGN800O PO; -OXYB10TA PO; -PHEN100C4 PO; +SODIUM CHLORIDE FLUSH 10 ML ONE; -TRAZ150T72 PO; -TRM50T PO; -TROL177. TP; -VIT1TABL26 PO; -ZLP5T PO
== END ==
LOC: LAB 08:30 → EDSTATUS 10:09
PROVIDERS: ATTEND Surgery
DX: Z53.8 Procedure and treatment not carried out for other reasons (principal)
CPT/HCPCS: 81003